=== PATIENT | male | born 1955 | race Caucasian/White ===

== ENCOUNTER 2019-07-20 17:09 | Emergency (ER) | payer MEDICARE, SELFPAY ==
[2019-07-20 17:11] VITALS: BP 104/71; PULSE 73; RESP 20; TEMP 36.5; O2SAT 98
[2019-07-20 17:25] VITALS: PULSE 74
--- NOTE | 2019-07-20 17:27 | ED.SYNCOPE ---
HPI - Syncope General Chief Complaint: Syncope Stated Complaint: Syncopal Time Seen by Provider: 07/20/19 17:26 Source: patient and RN notes reviewed Mode of arrival: ambulatory Limitations: no limitations History of Present Illness HPI narrative: A 63 y/o male presents to the ED after having a syncopal episode just [employer]. He states that he was at work when he began to feel lightheaded around 1 PM. He reports that it continued to get more severe throughout the day, so he went and sat down when he had a brief syncopal episode. He notes that he fell onto his knee and that he thinks he had a subjective fever throughout the day. He also notes that he feels better after receiving a fluid bolus in route but that he is still having some mild lightheadedness. He denies any N/V/D, poor appetite, leg edema, leg pain, CP, or SOB. MD complaint: loss of consciousness Onset (ago): minute(s) -: second(s) Prodromal symptoms: lightheaded and other (subjective fever) Context: other (sitting down) Injuries sustained associated with event: none Current symptoms: lightheaded (mild) and fever (subjective) Treatments prior to arrival: IV fluids Related Data Home Medications Medication Instructions Recorded Confirmed ibuprofen 200 mg tablet 800 mg PO BID PRN tablet 04/30/19 06/16/19 Allergies Allergy/AdvReac Type Severity Reaction Status Date / Time alcaftadine Allergy Mild Unknown Verified 07/20/19 17:36 Review of Systems Review of Systems: All systems reviewed & are unremarkable except as noted in HPI and below Constitutional: Constitutional: Reports fever(s) (subjective) and Denies poor appetite Cardiovascular: Cardiovascular: Denies chest pain, Denies leg edema and Reports lightheadedness (mild) Respiratory: Respiratory: Denies dyspnea Gastrointestinal: Gastrointestinal: Denies diarrhea, Denies nausea and Denies vomiting Musculoskeletal: Musculoskeletal: Denies other (leg pain) Neurologic: Reports syncope PMF Past Medical History Medical History (Updated 07/20/19 @ 18:03 by Murray Bishop MD) Hypothyroidism Leukemia Low back pain Surgical History Surgical History Surgical history unknown Family History Family History Father Diabetes mellitus Mother Alive and well Social History Social History Smoking status: Former smoker Tobacco type: cigarettes Alcohol intake: current Exam Const: General: healthy appearing and no acute distress Nutritional Appearance: well nourished HENMT: Mouth: Yes lip normal and Yes moist mucous membranes Eyes: Conjunctivae: conjunctivae normal Pupils: Equal, round and reactive pupils present Resp: Effort & Inspection: normal respiratory effort Auscultation: clear to auscultation bilaterally Cardio: Rate: regular rate Rhythm: regular rhythm Heart sounds: no murmurs GI: GI Palp: No abdominal tenderness and Yes Soft to palpation Auscultation: normal bowel sounds Back/Spine/Pelvis: Other: Full ROM. Skin: General skin exam: normal color, dry skin and other (warm) Neuro: General: patient oriented x3 (alert) Speech: normal speech Extrem: General: full ROM Psych: Mental Status: mental status grossly normal Affect: normal affect Course Vital Signs Vital signs: Vital Signs Temperature 36.5 C 07/20/19 17:11 Pulse Rate 73 07/20/19 17:11 Respiratory Rate 20 07/20/19 17:11 Blood Pressure 104/71 07/20/19 17:11 Pulse Oximetry 98 07/20/19 17:11 Temperature 36.5 C 07/20/19 17:11 Pulse Rate 74 07/20/19 17:25 Respiratory Rate 20 07/20/19 17:11 Blood Pressure 104/71 07/20/19 17:11 Pulse Oximetry 98 07/20/19 17:11 MDM - Syncope MDM Narrative Medical decision making narrative: Shortly after I examined the patient he refused lab work and asked to be discharged Lab Data Labs: Influenza A Sc
--- NOTE | 2019-07-20 17:29 | ECG_ITS ---
Measurements Intervals [place] Rate: 72 P: 52 ME: 162 QRS: 9 QRSD: 109 T: 43 QT: 409 QTc: 451 Interpretive Statements SINUS RHYTHM INCOMPLETE RIGHT BUNDLE BRANCH BLOCK BORDERLINE ECG Electronically Signed On 07-21-2019 6:54:16 STAFF NURSE ANESTHETIST by Glenn Arias D.O.
[2019-07-20] MEDS: SODIUM CHLORIDE 0.9% IV 1,000 ML 999 ML IV CONT (17:39)
[2019-07-20 18:19] VITALS: BP 131/92; PULSE 78; RESP 18; TEMP 36.9; O2SAT 98
== END 2019-07-20 18:27 | disposition home or self-care (01) ==
PROVIDERS: Emergency Provider Emergency Medicine; PCP Internal Medicine
DX: R55 Syncope and collapse (principal); E03.9 Hypothyroidism, unspecified; Z87.891 Personal history of nicotine dependence; Z85.6 Personal history of leukemia; I45.10 Unspecified right bundle-branch block
CPT/HCPCS: 87804; 93005; 96360; 99283; J7030

== ENCOUNTER 2019-08-02 01:19 | Day surgery (SDC) | payer MEDICARE, SELFPAY ==
[2019-07-28 14:17] VITALS: BMI 25.4
--- NOTE | 2019-08-02 09:05 | WPDANESEPPF ---
Anes - Initial Pre Proc Eval Procedure: Operation Date: 08/02/19 10:00 Proposed Procedures p Screening Colonoscopy - Keron Vargas MD Date/Time: 08/02/19 09:05 Surgeon: Keron Vargas MD Pre Op Diagnosis: Neoplasm Screening Patient Data Age: 63 Gender: M Height: 6 ft Weight: 85 kg Allergies Allergy/AdvReac Type Severity Reaction Status Date / Time Leukemia Chemo Drug Allergy Uncoded 07/28/19 14:28 Home Medications Medication Instructions Recorded Confirmed Type ibuprofen 200 mg tablet 800 mg PO BID PRN tablet 04/30/19 07/28/19 History citalopram 40 mg tablet 40 mg PO DAILY #90 tablet 07/12/19 07/28/19 Rx levothyroxine 100 mcg tablet 100 mcg PO DAILY #90 tablet 07/14/19 07/28/19 Rx cyclobenzaprine mg PO PRN 07/28/19 History Patient hx anesthesia problems: none Family hx anesthesia problems: none [facility] Past Medical History Medical History Hypothyroidism Leukemia Low back pain Surgical History Surgical History Surgical history unknown Family History Family History Father Diabetes mellitus Mother Alive and well Social History Social History Smoking status: Former smoker Tobacco type: cigarettes Alcohol intake: current Anes - Eval Final PreProcedure Day of Procedure 08/02/19 09:05 Patient weight: normal Heart: regular rate and rhythm Lungs: clear to auscultation Airway: Mallampati scale class II Neurological: alert and oriented Last oral intake: >/= 8 hours ASA classification: II Emergent: no Anesthetic plan: proceed Anesthesia type and monitoring: general GIVS and standard monitoring Informed Consent: The patient's anesthetic plan and its attendant risks and benefits were discussed with the patient/family/POA. Questions were solicited and answers provided to the satisfaction of the patient/family/POA.
[2019-08-02 09:20] VITALS: BP 109/72; PULSE 90; RESP 16; TEMP 36.7; O2SAT 100
[2019-08-02] MEDS: LACTATED RINGERS 1,000 ML 150 ML IV CONT (09:25)
--- NOTE | 2019-08-02 09:52 | PM.HPGS ---
History of Present Illness History of Present Illness Consent: Risks, benefits, and alternatives have been discussed and questions answered. Patient agrees to proceed with procedure. Chief complaint: Neoplasm Screening Narrative: France Diaz is a 63 year old W male referred for screening colonoscopy secondary to positive colo guard test. Patient states this last colonoscopy was over 10 years ago. Patient is asymptomatic. He thinks his father may have had polyps. 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 [facility] Past Medical History Medical History Hypothyroidism Leukemia Low back pain Surgical History Surgical History Surgical history unknown Family History Family History Father Diabetes mellitus Mother Alive and well Social History Social History Smoking status: Former smoker Tobacco type: cigarettes Alcohol intake: current Meds Home Medications and Allergies Home Medications Medication Instructions Recorded Confirmed Type ibuprofen 200 mg tablet 800 mg PO BID PRN tablet 04/30/19 08/02/19 History citalopram 40 mg tablet 40 mg PO DAILY #90 tablet 07/12/19 08/02/19 Rx levothyroxine 100 mcg tablet 100 mcg PO DAILY #90 tablet 07/14/19 08/02/19 Rx cyclobenzaprine mg PO PRN 07/28/19 History Allergies Allergy/AdvReac Type Severity Reaction Status Date / Time Leukemia Chemo Drug Allergy Uncoded 08/02/19 09:18 Vital Signs Vital Signs - 24 hr 08/02/19 09:20 Temperature 36.7 C Pulse Rate 90 Respiratory Rate 16 Blood Pressure 109/72 Pulse Oximetry 100 Exam Const: Orientation/consciousness: patient oriented x3 Resp: Auscultation: clear to auscultation bilaterally Cardio: Rate: regular rate Rhythm: regular rhythm Heart sounds: no murmurs GI: GI Palp: Yes Soft to palpation, No Tenderness to palpation present (GI), Yes No hepatosplenomegaly present and No Palpable mass present Auscultation: normal bowel sounds Neuro: General: patient oriented x3 and no focal motor deficits Extrem: General: no pedal edema Assessment and Plan Additional Plan Screening colonoscopy secondary positive colo guard test
[2019-08-02] MEDS: SIMETHICONE ORAL SUSPENSION 20 MG/0.3 ML 30 ML BOTTLE 0.6 ML IRRIGATION (10:40)
[2019-08-02 10:47] VITALS: BP 74/46; PULSE 76; RESP 19; O2SAT 97
[2019-08-02 10:57] VITALS: BP 77/42; PULSE 78; RESP 20; O2SAT 97
== END 2019-08-02 11:22 | disposition home or self-care (01) ==
PROVIDERS: PCP Internal Medicine; Visit Provider Internal Medicine Gastroenterology
PROC: 0DJD8ZZ Inspection of Lower Intestinal Tract, Via Natural or Artificial Opening Endoscopic (ICD-10-PCS; CPT 45378; principal; 2019-08-02 10:00)
DX: Z12.11 Encounter for screening for malignant neoplasm of colon (principal); R19.5 Other fecal abnormalities; K64.8 Other hemorrhoids; E03.9 Hypothyroidism, unspecified; Z85.6 Personal history of leukemia; Z87.891 Personal history of nicotine dependence
CPT/HCPCS: 45380; 88305; J2704; J7120

== ENCOUNTER 2020-09-07 14:44 | Outpatient (CLI) | payer MEDICARE, SELFPAY ==
--- NOTE | ~2020-09-07 | XR_ITS ---
EXAMINATION: XR hip LT min 2V DATE: 09/07/2020 15:11 INDICATION: Left hip pain. TECHNIQUE: 3 views of left hip were obtained. COMPARISON: Left hip radiographs 02/21/2013 FINDINGS: Bone alignment is normal. No fracture. There is mild left hip osteoarthritis. IMPRESSION: 1. Mild left hip osteoarthritis. Reviewed, dictated and finalized at location B.
== END 2020-09-07 14:45 | disposition home or self-care (01) ==
PROVIDERS: PCP Internal Medicine; Visit Provider Clinical Nurse Specialist
DX: M16.12 Unilateral primary osteoarthritis, left hip (principal)
CPT/HCPCS: 73502

== ENCOUNTER 2022-05-18 19:51 | Emergency (ER) | payer MEDICARE, OTHER, SELFPAY ==
[2022-05-18 19:57] VITALS: BP 179/95; PULSE 73; RESP 18; TEMP 36.5; O2SAT 100
--- NOTE | 2022-05-18 20:31 | ED.EXTPRO ---
HPI - Extremity Problem General Chief complaint: Extremity Problem,Nontraumatic Stated complaint: bruise to left leg Time Seen by Provider: 05/18/22 20:01 History of Present Illness HPI Narrative: Patient is a 66-year-old male who presents ER with concern for bruising to his left lower extremity. Patient reports he had a fall 3 weeks ago where he struck his leg on a chair. He then developed pain and swelling. He was reports the swelling has reduced and pain is also reduced. Reports took Tylenol and ibuprofen at night for his discomfort. No numbness or tingling in his. He is not on any blood thinners. Make sure he does not have an infection. Related Data Allergies Allergy/AdvReac Type Severity Reaction Status Date / Time asparaginase Allergy Severe Swelling Verified 12/18/21 09:40 Leukemia Chemo Drug Allergy Unknown Swelling Uncoded 12/18/21 09:40 Review of Systems Constitutional: Constitutional: Denies chills, Denies fatigue and Denies fever(s) Cardiovascular: Cardiovascular: Denies chest pain and Denies rapid heart rate Respiratory: Respiratory: Denies cough and Denies dyspnea Integumentary/Breasts: Skin/Breast: Denies erythema and Denies rash Comments: Bruising PMFSH Past Medical History Medical History (Updated 05/18/22 @ 20:33 by Frandy Padron MD) Hypothyroidism Leukemia Low back pain Surgical History Surgical History Surgical history unknown Family History Family History Father Diabetes mellitus Mother Alive and well Father Diabetes mellitus Mother Patient's mother is in good health Social History Social History Social History: caffeine-coffee 1-2 cups daily Smoking status: Never smoker Tobacco type: cigarettes Alcohol intake: current Drinks per week: 20 Alcohol use details: occasionally- beer Substance use: never Substance use type: does not use Exam Narrative: GENERAL: Well-appearing, well-nourished, and in no acute distress. HEAD: Normocephalic, atraumatic. CHEST: Clear to auscultation. No respiratory distress. HEART: Regular rate and rhythm. Normal peripheral pulses. EXTREMITIES: Normal range of motion. No edema. Hematoma to the left lower extremity medial aspect below the calf. She Contusion surrounding it and also areas of bleeding and bruising over the left side. All sensation normal, normal DP/PT pulses. SKIN: Warm, dry, no rash. NEURO: Alert and oriented x3. PSYCH: Normal mood and affect. Course Course Emergency Course: Patient found to have a mid, fever and has lower leg. Recommend referral to general surgery for evaluation and management. Vital Signs Vital signs: Vital Signs Temperature 97.7 F 05/18/22 19:57 Pulse Rate 73 05/18/22 19:57 Respiratory Rate 18 05/18/22 19:57 Blood Pressure 179/95 H 05/18/22 19:57 Pulse Oximetry 100 05/18/22 19:57 Oxygen Delivery Room Air 05/18/22 19:57 Temperature 97.7 F 05/18/22 19:57 Pulse Rate 73 05/18/22 19:57 Respiratory Rate 18 05/18/22 19:57 Blood Pressure 179/95 H 05/18/22 19:57 Pulse Oximetry 100 05/18/22 19:57 Oxygen Delivery Room Air 05/18/22 19:57 Discharge Plan Discharge Clinical Impression: Hematoma of leg Patient Disposition: Home, Self-Care Condition: Stable Instructions: Antibiotic Form Additional Instructions: Return the ER if you have chest pain shortness of breath, you cannot keep down food or water, you lose consciousness, you have additional concerns. Follow-up with general surgery for for evaluation of this hematoma of the leg. Prescriptions: No Action citalopram 40 mg tablet 40 mg PO DAILY Qty: 90 1RF levothyroxine 100 mcg tablet 100 mcg PO DAILY Qty: 90 0RF Follow-up/Referrals: Regis Abad MD [Physician] - 1 Week Jhon Addison,
== END 2022-05-18 20:58 | disposition home or self-care (01) ==
PROVIDERS: Emergency Provider Emergency Medicine; PCP Internal Medicine
DX: S80.12XA Contusion of left lower leg, initial encounter (principal); E03.9 Hypothyroidism, unspecified; Z85.6 Personal history of leukemia; W01.190A Fall on same level from slipping, tripping and stumbling with subsequent striking against furniture, initial encounter
CPT/HCPCS: 99281

== ENCOUNTER 2022-12-05 09:27 | Outpatient (CLI) | payer MEDICARE, SELFPAY ==
[2022-12-05 13:29] LABS: Basophils Percent Auto 0.5 % (0.2-1.2); Eosinophils Absolute Auto 0.2 K/mm3 (0-0.3); Eosinophils Percent Auto 2.8 % (0-4.4); Hemoglobin 16.1 g/dL (14.0-18.0); Immature Granulocyte Absolute 0.07 K/mm3 (0.00-0.031); Immature Granulocyte Percent A 1.1 % (0-0.5); Lymphocytes Absolute Auto 2.37 K/mm3 (0.9-3.2); Lymphocytes Percent Auto 36.7 % (18.3-44.2); Mean Corpuscular HGB Conc 33.5 g/dl (32-36); Mean Corpuscular Hemoglobin 32.9 pg (26-34); Mean Corpuscular Volume 98.2 fl (80-100); Mean Platelet Volume 9.7 fl (7.4-10.4); Monocytes Absolute Auto 0.6 K/mm3 (0.1-0.6); Neutrophils Absolute Auto 3.2 K/mm3 (1.3-6.7); Neutrophils Percent Auto 49.9 % (45.5-73.1); Platelet Count Result 184 k/mm3 (150-375); Red Blood Count 4.89 M/mm3 (4.6-6.20); Red Cell Distribution Width 12.5 % (11.5-14.5); White Blood Count 6.5 K/mm3 (4.5-10.0)
[2022-12-05 14:16] LABS: Alanine Aminotransferase 20 U/L (6-50); Albumin Level 4.2 g/dL (3.5-5.1); Alkaline Phosphatase 113 U/L (38-126); Anion Gap 6 mmol/L (8-16); Aspartate Amino Transferase 32 U/L (17-59); Bilirubin,Total 0.8 mg/dL (0.2-1.3); Blood Urea Nitrogen 11 mg/dL (9-20); Calcium 9.1 mg/dL (8.4-10.2); Carbon Dioxide 29 mmol/L (22-30); Chloride 103 mmol/L (98-107); Cholesterol 191 mg/dL (0-200); Estimated Glomerular Filt Rate > 60; Glucose 98 mg/dL (65-110); HDL Direct 91 mg/dL; Potassium 4.2 mmol/L (3.4-5.0); Sodium 138 mmol/L (137-145); Triglycerides 86 mg/dL (<150)
[2022-12-05 14:27] LABS: LDL Cholesterol Direct 71 mg/dL
[2022-12-05 14:35] LABS: Free T4 Free Thyroxine 0.92 ng/mL (0.78-2.19)
[2022-12-05 14:48] LABS: Prostate Specific Antigen 1.7 ng/mL (< OR = 4.0)
[2022-12-11 07:14] LABS: Triiodothyronine T3 Free 4.1 pg/mL (2.3-4.2)
== END 2022-12-05 09:28 | disposition home or self-care (01) ==
LOC: ANHGOSHLAB 09:29
PROVIDERS: PCP Internal Medicine; Visit Provider Nurse Practitioner
DX: E03.9 Hypothyroidism, unspecified (principal); F10.10 Alcohol abuse, uncomplicated; Z12.5 Encounter for screening for malignant neoplasm of prostate
CPT/HCPCS: 36415; 80053; 80061; 84153; 84439; 84443; 84481; 85025; G0103

== ENCOUNTER 2023-04-15 15:23 | Outpatient (CLI) | payer MEDICARE, SELFPAY ==
[2023-04-15 19:38] LABS: Free T4 Free Thyroxine 0.88 ng/mL (0.78-2.19)
== END 2023-04-15 15:24 | disposition home or self-care (01) ==
PROVIDERS: PCP Internal Medicine; Visit Provider Nurse Practitioner
DX: E03.9 Hypothyroidism, unspecified (principal)
CPT/HCPCS: 36415; 84439; 84443; 84481

== ENCOUNTER 2024-05-03 15:50 | Outpatient (CLI) | payer MEDICARE, SELFPAY ==
[2024-05-03 19:19] LABS: Alanine Aminotransferase 22 U/L (6-50); Alkaline Phosphatase 96 U/L (38-126); Anion Gap 4 mmol/L (4-12); Aspartate Amino Transferase 47 U/L (17-59); Bilirubin,Total 0.5 mg/dL (0.2-1.3); Blood Urea Nitrogen 19 mg/dL (9-20); Calcium 8.8 mg/dL (8.4-10.2); Carbon Dioxide 29 mmol/L (22-30); Chloride 106 mmol/L (98-107); Cholesterol 207 mg/dL (0-200); Estimated Glomerular Filt Rate > 60; Glucose 82 mg/dL (65-110); HDL Direct 82 mg/dL; Potassium 4.3 mmol/L (3.4-5.0); Sodium 139 mmol/L (137-145); Triglycerides 102 mg/dL (<150)
[2024-05-03 19:20] LABS: Basophils Percent Auto 0.5 % (0.2-1.2); Eosinophils Absolute Auto 0.1 K/mm3 (0-0.3); Eosinophils Percent Auto 2.3 % (0-4.4); Hematocrit 46.6 % (42.0-52.0); Hemoglobin 15.4 g/dL (14.0-18.0); Immature Granulocyte Absolute 0.04 K/mm3 (0.00-0.031); Immature Granulocyte Percent A 0.7 % (0-0.5); Lymphocytes Absolute Auto 2.27 K/mm3 (0.9-3.2); Lymphocytes Percent Auto 39.6 % (18.3-44.2); Mean Corpuscular Hemoglobin 32.7 pg (26-34); Mean Corpuscular Volume 98.9 fl (80-100); Mean Platelet Volume 9.4 fl (7.4-10.4); Monocytes Absolute Auto 0.6 K/mm3 (0.1-0.6); Monocytes Percent Auto 9.6 % (2.6-8.5); Neutrophils Absolute Auto 2.7 K/mm3 (1.3-6.7); Neutrophils Percent Auto 47.3 % (45.5-73.1); Platelet Count Result 217 k/mm3 (150-375); Red Blood Count 4.71 M/mm3 (4.6-6.20); Red Cell Distribution Width 12.3 % (11.5-14.5); White Blood Count 5.7 K/mm3 (4.5-10.0)
[2024-05-03 19:31] LABS: LDL Cholesterol Direct 89 mg/dL
[2024-05-03 19:46] LABS: Free T4 Free Thyroxine 0.79 ng/dL (0.78-2.19)
[2024-05-03 19:50] LABS: Prostate Specific Antigen 5.6 ng/mL (< OR = 4.0)
[2024-05-03 20:26] LABS: Folic Acid 10.2 ng/mL (2.76->20)
[2024-05-05 05:23] LABS: Triiodothyronine T3 Free 4.1 pg/mL (2.3-4.2)
== END 2024-05-03 15:51 | disposition home or self-care (01) ==
LOC: ANHGOSHLAB 15:52
PROVIDERS: PCP Internal Medicine; Visit Provider Nurse Practitioner
DX: Z12.5 Encounter for screening for malignant neoplasm of prostate (principal); E03.9 Hypothyroidism, unspecified; F10.10 Alcohol abuse, uncomplicated
CPT/HCPCS: 36415; 80053; 80061; 82607; 82746; 84153; 84439; 84443; 84481; 85025; G0103

== ENCOUNTER 2024-08-10 14:53 | Outpatient (CLI) | payer MEDICARE, SELFPAY ==
--- OUTSIDE RECORDS SUMMARY | 2024-08-10 17:29 | XMS_ITS | Continuity of Care Document ---
Author Organization [facility] Address [address] [place] [address] [place] [address] Phone Care Team Providers Care Lease Purchase Truck Driver Name Role Phone [facility] Unavailable Unavail able Advance Directives Directive Yes / No Effective Date File Name No Information Encounters Encounter Description Practice Location Reason(s) For Visit Diagnoses Date Provider Providers Copied on Encounter [facility], [id number] [place] [address] [address], [place], [place], [id number], [place] tel:[phone] [facility] No Information [facility] . [address] [place], [place], [id number], [place]. tel:[phone] Family History Family Member Type Diagnosis Age At Onset No Information Payers Payer name Insurance type Covered libertarian ID Authoriza tion(s) No Information Social History Type Description Quantity Date Captured Comments Sex Male Smoking Status No Information Chief Complaint And Reason For Visit No Information Reason For Referral Reason For Referral No Information History Of Present Illness Encounter Date Complaint History Of Prese nt Illness No Information Functional Status Date Functional Assessmen t No Information Instructions Date Instruction Additional Infor mation No Information Assessments Type Assessment Date No Information Patient Care Teams Name Effective Dates (start - stop) Status Members No Information
--- OUTSIDE RECORDS SUMMARY | 2024-08-10 17:29 | XMS_ITS ---
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 Past Treatment and Therapy Plans No past plan information found. Lifetime Dose Tracking * Chemical Lifetime Dose Automatic Entry Manual Entr y Fluoro Time 0.334 minutes 0.334 minutes 0 minutes Air kerma at the reference point (Ka,r) 0.001 mGy 0 .001 mGy 0 mGy
--- OUTSIDE RECORDS SUMMARY | 2024-08-10 17:29 | XMS_ITS | Encounter Summary ---
Author Organization 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 Gender Identity Male 02/06/2018 9:55 AM CDT Sexual Orientation Not on file documented as of this encounter Plan of Treatment Not on file documented as of this encounter Procedures Procedure Name Priority Date/Time Associated Diagnosis Comments SCAN - LABS 06/09/2019 documented in this encounter Results * SCAN - LABS (06/09/2019) us Provider Scanning Final Result documented in this encounter Visit Diagnoses Not on filedocumented in this encounter Care Teams Ortho Assistant Relationship Specialty Start Date End Date Jhon Addison DO PCP - General Internal Medicine 02/06/18 documented as of this encounter
--- OUTSIDE RECORDS SUMMARY | 2024-08-10 17:29 | XMS_ITS | Continuity of Care Document ---
Author Organization [facility] Address [address] [place] [address] [place] [phone] Phone Care Team Providers Care Payroll Services Analyst Name Role Phone Ludwig NUPURNandini Unavailable Unavailable Procedures Procedure Date THERAPEUTIC EXERCISES NEUROMUSCULAR RE-ED HOT/COLD PACK ELECTRIC STIMULATION UNATT Medications Name Dose Freq Route DOC Nov PT EVALUATION THERAPEUTIC EXERCISES HOT/COLD PACK ELECTRIC STIMULATION UNATT Carrying, Moving And Handling Objects-Cu rrent Carrying, Moving And Handling Objects-Go al Medications Name Dose Freq Route DOC Nov Pain Assess Positive -02/25 [facility] 2013 BMI Normal and DOC 18-64 yo=18.5-25.0 65 + yo=23.0-30.0 Functional Outcome Assessmen t documented, deficits identified, treatment plan es THERAPEUTIC EXERCISES NEUROMUSCULAR RE-ED FUNC ACTIVITY Medications Name Dose Freq Route DOC Oct THERAPEUTIC EXERCISES NEUROMUSCULAR RE-ED FUNC ACTIVITY Medications Name Dose Freq Route DOC Oct THERAPEUTIC EXERCISES NEUROMUSCULAR RE-ED FUNC ACTIVITY 15 MIN Medications Name Dose Freq Route DOC Oct PT EVALUATION THERAPEUTIC EXERCISES NEUROMUSCULAR RE-ED Mobility: Walking And Moving Limitations -Curent Mobility: Walking And Moving Limitation- Goal Medications Name Dose Freq Route DOC Oct Pain Assess Positive DOC 2013 BMI Normal and DOC 18-64 yo=18.5-25.0 65 + yo=23.0-30.0 Functional Outcome Assessmen t documented, deficits identified, treatment plan es PT EVALUATION THERAPEUTIC EXERCISES HOT/COLD PACK Mobility: Walking And Moving Limitations -Curent Mobility: Walking And Moving Limitation- Goal Medications w/ Name Dose Freq NOT Route No Reason DOC Pain Assess Positive DOC 2012 BMI High F/U Plan DOC Advance Directives Directive Yes / No Effective Date File Name No Information Encounters Encounter Description Practice Location Reason(s) For Visit Diagnoses Date Provider Providers Copied on Encounter [facility], [id number], [phone] [place] No Information 4 Ludwig Delatorre. [address] [facility], [address], [place], [facility], [place]. tel:[phone] [facility] [address] [place] [address], [id number], tel:[phone] [place] No Information 4 Carlitos Valladares. [address] [facility], [address], [place], [facility], [place]. tel:[phone] Referring Provider: Gabriele Saunders, [address] [place], [address]. tel:[phone] [facility] [address], [id number], tel:[phone] [place] No Information 4 Carlitos Valladares. [address] [facility], [address], [place], [facility], [place]. tel:[phone] Referring Provider: Gabriele Saunders, [address] [place], [address]. tel:[phone], [id number], [place] tel:[phone] [place] No Information 3 4 Munroe Nandini. [address] [facility], [address], [place], [place], [facility], [place]. tel: [phone] Referring Provider: Graham Magallon, [place], [address]. tel:[phone], [id number], [place] tel:[phone] [place] No Information 4 Munroe Nandini. [address] [place] [address], [address], [place], [facility], [place]. tel: [phone] Referring Provider: [place], [address]. tel:[phone], [id number], [place] tel:[phone] [place] No Information 4 Munroe Nandini. [address] [place] [address], [address], [place], [place], [facility], [place]. tel: [phone] Referring Provider: [place], [address]. tel:[phone], [id number], [place] tel:[phone] [place] LumbagoLoss of weightMuscle weakness (generalized) 4 Munroe Nandini. [address] [place] [address], [address], [place], [facility], . tel: [phone] Referring Provider: [place], [address]. tel:[phone] [facility] [place], [address] [facility] [address], [place], [place], [id number], [place] tel:[phone] [place] Pain in joint involving pelvic region and thigh 3 Ludwig Delatorre. [address] [facility], [address], [place], [address], [place]. tel: [phone] Family History Family Member Type Diagnosis Age At Onset No Information Payers Payer name Insurance type Covered alliance party ID Authoriza tion(s) [place] [id number] Social History Type Description Quantity Date Captured [...]
--- OUTSIDE RECORDS SUMMARY | 2024-08-10 17:29 | XMS_ITS | Clinical Summary ---
Author Organization [facility] Address [address] [place] [address] Care Team Providers Care Sulfuric Acid Plant Supervisor Name Role Phone Jhon Addison DO Primary Care Provider [phone] Source Comments [facility],non-owned Affiliates and Associated Physician Practices is amultiple site organization consisting of ambulatory clinics and hospital sitesin [place], [place], [place]. This disclosure is being madepursuant to the Care Everywhere program and may not contain all information available regarding this patient. Last updated 18.[facility] Yingying Licai Allergies Active Allergy Reactions Criticality Noted Date Comments Asparaginase Swelling Low 02/01/2015 Medications * Be aware that medications may not be up to date on this document. Alwaysverify current medications with the patient. Medication Sig Dispensed Refills Start Date End Date Status levothyroxine (SYNTHROID) 100 MCG tablet Take 100 mcg by mouth DAILY. 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 Dermatochalasis of eyelid 10/29/2011 Social History Tobacco Use Types Packs/Day Years Used Date Smoking Tobacco: Never Smokeless Tobacco: Never Tobacco Cessation:Counseling Given: Not Answered Alcohol Use Standard Drinks/Week Comments Yes 10 (1 standard drink = 0.6 oz pu re alcohol) Sex and Gender Information Value Date Recorded Sex Assigned at Not on file Gender Identity Not on file Sexual Orientation Not on file Last Filed Vital Signs Vital Sign Reading Time Taken Comments Blood Pressure 168/99 08/23/2023 9:14 AM CDT Pulse 73 08/23/2023 9:13 AM CDT Temperature 36.3 C (97.4 F) 08/23/2023 9:13 AM CDT Respiratory Rate 16 08/23/2023 9:13 AM CDT Oxygen Saturation 97% 08/23/2023 9:13 AM CDT Inhaled Oxygen Concentration - - Weight 86.2 kg (190 lb) 08/23/2023 9:13 AM CDT Height 182.9 cm (6') 08/23/2023 9:13 AM CDT Body Mass Index 25.77 08/23/2023 9:13 AM CDT Plan of Treatment Health Maintenance Due Date Last Done Comments COLOGUARD (AGES 45-75) - COL ON CA SCREENING 1956 COLON MONITORING 1956 COLONOSCOPY - COLON CA SCREENING 1956 CT COLONOGRAPHY - COLON CA SCREENING 1956 Colorectal Cancer Screening 1956 FIT - COLON CA SCREENING 1956 FLEX SIG - COLON CA SCREENING 1956 LIPID TESTING 1955 MEDICARE AWV 12 MONTHS 1956 HEPATITIS C SCREENING 09/11/1974 DTAP/TDAP/TD VACCINES (1 - Tdap) 09/16/1975 PNEUMOCOCCAL VACCINE 50+ (1 of 1 - PCV) 2006 ZOSTER VACCINE (1 of 2) 2006 COVID-19 VACCINE (2 - 2023-2 5 season) 2024 09/18/2020 INFLUENZA VACCINE (#1) 2024 DEPRESSION SCREENING 05/19/2024 Respiratory Syncytial Virus (RSV) Vaccine Pt: or over 60 yrs (1 - 1-dose 75+ series) 09/16/2031 HEPATITIS B VACCINE Aged Out No longe r eligible based on patient's age to complete this topic HIB VACCINE Aged Out No longer eligi ble based on patient's age to complete this topic HPV VACCINE Aged Out No longer eligi ble based on patient's age to complete this topic MENINGOCOCCAL (Group B) VACC INE SHARED DECISION-MAKING Aged Out No longer eligibl e based on patient's age to complete this topic MENINGOCOCCAL GROUPS A/C/Y/W VACCINE Aged Out No longer eligible b ased on patient's age to complete this topic Care Teams Sulfuric Acid Plant Supervisor Relationship Specialty Start Date End Date Jhon Addison DO PCP - General 03/05/16
--- OUTSIDE RECORDS SUMMARY | 2024-08-10 17:29 | XMS_ITS | Encounter Summary ---
Author Organization [facility] Healthcare Address [address] [place] [address] Care Team Providers Care Power Tool Repair Technician Name Role Phone Jhon Addison DO Primary Care Provider [phone] Encounter Details Date Type Department Care Team (Late st Contact Info) Description 11/29/2020 Telephone [facility] ([facility]) [address] [place] [id number] [address], RT Social History Tobacco Use Types Packs/Day Years Used Date Smoking Tobacco: Never Smokeless Tobacco: Never AUDIT-C Answer Date Recorded Q1: How often do you have a drink containing alc ohol? 2-3 times a week 11/02/2020 Q2: How many drinks containi ng alcohol do you have on a typical day when you are drinking? 1 or 2 11/02/2020 Q3: How often do you have si x or more drinks on one occasion? 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
--- OUTSIDE RECORDS SUMMARY | 2024-08-10 17:29 | XMS_ITS | Clinical Summary ---
Author Organization [facility] Address [address] [place] [id number] Care Team Providers Care Process Mold Technician Name Role Phone Unavailable Primary Care Provider Unavailabl e Social History Tobacco Use Types Packs/Day Years Used Date Smoking Tobacco: Never Assessed Sex and Gender Information Value Date Recorded Sex Assigned at Not on file Legal Sex Male 7:33 PM CDT Gender Identity Not on file Sexual Orientation Not on file Last Filed Vital Signs Vital Sign Reading Time Taken Comments Blood Pressure 91/62 10/13/2014 4:11 PM CDT Pulse 94 10/13/2014 4:11 PM CDT Temperature - - Respiratory Rate - - Oxygen Saturation - - Inhaled Oxygen Concentration - - Weight 86.2 kg (190 lb) 10/13/2014 4:11 PM CDT Height 182.9 cm (6') 10/13/2014 4:11 PM CDT Body Mass Index 25.77 10/13/2014 4:11 PM CDT Plan of Treatment Health Maintenance Due Date Last Done Comments Colorectal Cancer Screening Colonoscopy (10 Years) 1956 Hepatitis C 1974 DTaP, Tdap and Td Vaccines ( 1 - Tdap) 09/16/1975 Zoster Vaccines (1 of 2) 2006 Pneumococcal Vaccine: 65+ Ye ars (1 of 1 - PCV) 2021 COVID-19 Vaccine ( - 2023-2 5 season) 2024 Influenza Adult (#1) 2024 RSV Immunization or 60+ Years (1 - 1-dose 75+ series) 09/16/2031 Meningococcal B Vaccine Aged Out No l onger eligible based on patient's age to complete this topic Meningococcal Vaccine Aged Out No emelia ghada eligible based on patient's age to complete this topic RSV Immunizations Under 20 Months Aged Out No longer eligible based on patient's age to complete this topic
--- OUTSIDE RECORDS SUMMARY | 2024-08-10 17:29 | XMS_ITS | Referral Summary ---
Author Organization [facility] Address [address] [place] [address] Care Team Providers Care Director Of Product Design Name Role Phone Jhon Addison DO Primary Care Provider [phone] Allergies Active Allergy Reactions Criticality Noted Date Comments Asparaginase Swelling Medium 02/01/2015 Medications levothyroxine (SYNTHROID, LEVOTHROID) 100 mcg tablet Take 1 tablet (100 mcg total) by mouth daily 07/24/2016 Active citalopram (CeleXA) 40 mg tablet Take 1 tablet by mouth daily 10/13/2018 Active cyclobenzaprine (FLEXERIL) 10 mg tablet TAKE 1 TABLET BY MOUTH THREE TIMES DAILY NEEDED FOR MUSCLE SPASM 09/07/2020 Active ibuprofen (ADVIL,MOTRIN) 800 mg tablet Take 800 mg by mouth every 6 (six) hours as needed for pain Active acetaminophen (TYLENOL) 500 mg tablet Take 500 mg by mouth every 6 (six) hours as needed for pain Active baclofen (LIORESAL) 10 mg tablet 12/01/2020 Active methylPREDNISolo ne (MEDROL DOSEPACK) 4 mg Dosepack 12/01/2020 Active losartan (COZAAR) 25 mg tablet Take 1 tablet (25 mg total) by mouth daily 04/25/2023 Active Active Problems Problem Noted Date Diagnosed Date 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 Less than monthly 11/02/2020 Personal Safety Answer Date Recorded Have you ever been in or are you currently in a harmful physical or emotional relationship or is someone making you feel afraid or unsafe? 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 Gender Identity Male 02/06/2018 9:55 AM CDT Sexual Orientation Not on file Last Filed Vital Signs Vital Sign Reading Time Taken Comments Blood Pressure 163/99 08/27/2023 9:15 AM CDT Pulse 67 08/27/2023 9:15 AM CDT Temperature 36.4 C (97.5 F) 02/06/2018 10:45 AM CDT Respiratory Rate 16 08/27/2023 9:15 AM CDT Oxygen Saturation 99% 08/27/2023 9:15 AM CDT Inhaled Oxygen Concentration - - Weight 84.2 kg (185 lb 9.6 oz) 11/02/2020 2:33 P M CDT Height 182.9 cm (6') 11/02/2020 2:33 PM CDT Body Mass Index 25.17 11/02/2020 2:33 PM CDT Plan of Treatment Not on file Procedures Procedure Name Priority Date/Time Associated Diagnosis Comments FLEXIBLE SIGMOIDOSCOPY REPORT 08/23/2013 SERUM HEPATITIS PANEL Routine 05/14/2013 11:10 AM PHOTOGRAPHY INTERN from Last 3 Months or Most Recently Relevant to Health Maintenance Results * FLEXIBLE SIGMOIDOSCOPY REPORT (08/23/2013) Anatomical Region Laterality Modality Other Narrative 08/23/2013 Ordered by an unspecified provider. us Historical Provider GI PROCEDURE ORDERABLES F inal Result * Serum Hepatitis panel (05/14/2013 11:10 AM PHOTOGRAPHY INTERN) HBV surface ag Negative NEG HISTO RICAL RESULTS HCV ab Negative NEG HISTORICAL RESULTS Comment: Interpretive Data If confirmation is required, call Laboratory Customer Service to request sample to be sent to [facility] for Hepatitis C Virus (HCV) RNA Detection and Quantitation by Real-Time Reverse Research Computing Specialist-PCR (RT-PCR). Current interpretive data was last revised on 2011 HBV core ab, IgM Negative NEG HIS TORICAL RESULTS Comment: Interpretive Data If test is reported as Equivocal, new sample should be drawn for testing. Current interpretive data was last revised on 2007. HAV ab, IgM Negative NEG HISTORIC AL RESULTS Comment: Interpretive Data If test is reported as Equivocal, new sample should be drawn in two weeks for testing. Current interpretive data was last revised on 2007. Serum 05/14/2013 11:1 0 AM PHOTOGRAPHY INTERN Alberto Puente MD LAB BLOOD ORDERABLES nal Result HISTORICAL RESULTS from Last 3 Months or Most Recently Relevant to Health Maintenance Insurance MEDICARE [facility] Address: [facility] [address] [place] [address] MEDICARE MEDICARE Care Teams Director Of Product Design Relationship Specialty Start Date End Date Jhon Addison DO PCP - General Internal Medicine 02/06/18
--- OUTSIDE RECORDS SUMMARY | 2024-08-10 17:29 | XMS_ITS | Clinical Summary ---
Author Organization [facility] Address [address] [place] [address] Care Team Providers Care Youth Specialist Name Role Phone Jhon Addison DO Primary Care Provider [phone]- [phone] Allergies Active Allergy Reactions Criticality Noted Date [...] 02/05 Immunizations Immunization Administration Dates Next Due [email or web address] (J&J) SARS-CoV-2 Vaccination 09/18/2020 Surgical History Surgery Date Site/Laterality Comments CONTRAST INJECTION EVALUATIO N CENTRAL VENOUS ACCESS DEVICE 2013 N/A TUNNELED LINE PLACEMENT <5 YEARS 07/13/2013 N/A LUMBAR PUNCTURE WO INJECTION, DIAGNOSTIC 03/11/2013 N/A CENTRAL LINE PLACEMENT > 5 YEARS 12/29/2012 N/A FL FLUORO GUIDED INJECTION HIP LEFT 11/30/2020 Left FL FLUORO GUIDED INJECTION HIP LEFT 08/27/2023 Left Family History Medical History Relation Name Comments Heart disease Father Relation Name Status Comments Father Social History Tobacco Use Types Packs/Day Years [...] on file 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 Gender Identity Male 02/06/2018 9:55 AM CDT Sexual Orientation Not on file Obstetrics History Last Filed Vital Signs Vital Sign Reading [...] 11/02/2020 2:33 PM CDT Plan of Treatment Health Maintenance Due Date Last Done Comments Colon Cancer Screening-Colonoscopy 1956 Depression Screening 1956 Prostate Cancer Screening-PSA 1956 DTaP/Tdap/Td Vaccine (1 - Tdap) 09/16/1967 Hepatitis B Screening 1974 Pneumococcal vaccine 65+ (1 of 2 - PCV) 09/16/1975 Zoster Vaccine (1 of 2) 09/16/1975 Covid-19 Vaccine (2 - Jansse n risk series) 10/16/2020 09/18/2020 Well Visit 65+ 2021 Influenza Vaccine (#1) 2024 Fall Risk Assessment 08/26/2024 08/27/2023 Hepatitis C Screening Completed 05/14/2013 , 03/04/2013, 01/15/2013 Colon Cancer Screening-CT Colonography Discontinued 08/23/2013 Colon Cancer Screening-DNA Stool Discontinued 08/24/19 14 Colon Cancer Screening-FIT Discontinued 08/23/2013 Colon Cancer Screening-Sigmoidoscopy Discontinued 11/2013 Procedures Procedure Name Priority Date/Time Associated Diagnosis Comments FLEXIBLE SIGMOIDOSCOPY REPORT 08/23/2013 SERUM HEPATITIS PANEL Routine 05/14/2013 11:10 AM SOLE FILLER from Last 3 Months or Most Recently Relevant to Health Maintenance Results * FLEXIBLE SIGMOIDOSCOPY REPORT (08/23/2013) Anatomical Region Laterality Modality Other Narrative 08/23/2013 Ordered by an unspecified provider. us Historical Provider GI PROCEDURE ORDERABLES F inal Result * Serum Hepatitis panel (05/14/2013 11:10 AM SOLE FILLER) HBV surface ag Negative NEG HISTO RICAL RESULTS HCV ab Negative NEG HISTORICAL RESULTS Comment: Interpretive Data If confirmation is required, call Laboratory Customer Service to request sample [facility] be [facility] to [facility] for Hepatitis C Virus (HCV) RNA Detection and Quantitation by Real-Time Reverse Clinical Rehabilitation Coordinator-PCR (RT-PCR). Current interpretive data was last revised [...] on 2007. Serum 05/14/2013 11:1 0 AM SOLE FILLER us Alberto Puente MD LAB BLOOD ORDERABLES Fi nal Result HISTORICAL RESULTS from Last 3 Months or Most Recently Relevant to Health Maintenance Insurance MEDICARE MEDICARE MEDICARE Care Teams Youth Specialist Relationship Specialty Start Date End Date Jhon Addison DO PCP - General Internal Medicine 02/06/18
[2024-08-10 20:05] LABS: Prostate Specific Antigen 1.6 ng/mL (< OR = 4.0)
== END 2024-08-10 14:54 | disposition home or self-care (01) ==
LOC: ANHGOSHLAB 14:54
PROVIDERS: PCP Internal Medicine; Visit Provider Internal Medicine
DX: R97.20 Elevated prostate specific antigen [PSA] (principal)
CPT/HCPCS: 36415; 84153